=== PATIENT | female | born 1995 | race African-American/Black ===

== ENCOUNTER 2020-03-06 15:22 | Emergency (ER) | payer OTHER, SELFPAY ==
[2020-03-06 15:40] VITALS: BP 136/70; PULSE 72; RESP 16; TEMP 36.9; O2SAT 100
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
[2020-03-06] MEDS: KETOROLAC (*BKC) 60 MG/2 ML VIAL IM (16:01)
== END 2020-03-06 16:22 | disposition home or self-care (01) ==
PROVIDERS: Emergency Provider Nurse Practitioner Family
DX: K08.89 Other specified disorders of teeth and supporting structures (principal)
CPT/HCPCS: 96372; 99213; G0463; J1885

== ENCOUNTER 2020-11-13 15:42 | Emergency (ER) | payer OTHER, SELFPAY | END 2020-11-13 15:44 | disposition left against medical advice (07) | PROVIDERS: Emergency Provider Nurse Practitioner | DX: Z53.21 Procedure and treatment not carried out due to patient leaving prior to being seen by health care provider (principal) | CPT/HCPCS: 99199 ==

== ENCOUNTER 2020-11-13 16:18 | Emergency (ER) | payer OTHER, SELFPAY ==
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
[2020-11-13 16:26] VITALS: BP 124/79; PULSE 87; RESP 16; TEMP 36.5; O2SAT 100
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
== END 2020-11-13 18:00 | disposition home or self-care (01) ==
PROVIDERS: Emergency Provider Emergency Medicine
DX: S16.1XXA Strain of muscle, fascia and tendon at neck level, initial encounter (principal); V49.40XA Driver injured in collision with unspecified motor vehicles in traffic accident, initial encounter
CPT/HCPCS: 72125; 99284